=== PATIENT | male | born 1955 | race Caucasian/White ===

== ENCOUNTER 2018-11-08 08:08 | Emergency (ER) | payer OTHER, SELFPAY ==
[2018-11-08 08:10] VITALS: BP 132/78; PULSE 69; RESP 18; TEMP 36.6; O2SAT 96; BMI 31.7
[2018-11-08 08:41] VITALS: BP 121/75; BP 124/84; PULSE 64; PULSE 68
[2018-11-08] MEDS: 0.9% Normal Saline 1,000 ML 1000 ML IV (08:41)
[2018-11-08 08:52] LABS: Absolute Lymphocyte Count 1.82 X10^3/uL (0.83-4.51); Absolute Neutrophil Count 4.5 X10^3/uL (2.0-7.7); Basophil# 0.06 X10^3/uL; Basophil% 0.8 % (0-1); Eosinophil# 0.13 X10^3/uL; Eosinophils% 1.8 % (0-5); Hemoglobin 14.2 g/dL (13.0-16.5); Lymphocyte # 1.82 X10^3/ul (4.0); Lymphocyte % 25.4 % (19-41); Mean Corp Hgb Conc 33.8 g/dL (32-36); Mean Corpuscular Hgb 31.6 pg (27.0-32.0); Mean Corpuscular Volume 93.5 fL (80-94); Monocyte% 8.4 % (0-10); NRBC Flagged by Analyzer 0 % (0-5); Neutrophil # 4.54 X10^3/uL (2.7-7.7); Neutrophil % 63.3 % (47-70); Platelet Count 132 K/mm3 (150-450); RBC Distribution Width CV 13.7 % (11.6-14.6); RBC Distribution Width SD 46.6 fl (35.1-43.9); Red Blood Count 4.49 M/mm3 (4.6-6.2); White Blood Count 7.2 K/mm3 (4.4-11.0)
[2018-11-08 09:01] LABS: International Normalized Ratio 1.2; Prothrombin Time (Protime)PT. 14.8 SECONDS (11.7-14.9)
[2018-11-08 09:02] LABS: Partial Thromboplast Time 31.5 Seconds (24.1-36.2)
[2018-11-08 09:17] LABS: Anion Gap 8 (5-15); BUN 16 mg/dL (7-18); BUN/Creat Ratio 18.1 RATIO (10-20); Chloride 108 mmol/L (98-107); Creatinine, Serum 0.88 mg/dL (0.70-1.30); EST Glomerular Filtration Rate 93 mL/min (>60); Est Glom Filt Rate - Afr Amer 113 mL/min (>60); Estimated Creatinine Clearance 92.17 ml/min; Glucose 96 mg/dL (74-106); Potassium 4.1 mmol/L (3.5-5.1); Sodium Level 143 mmol/L (136-145)
--- NOTE | 2018-11-08 09:45 | ED.VISSUMM ---
- ER Visit Summary Date of Service: 11/08/18 Chief Complaint: Blood in stool History of Present Illness: The patient is a [address] Lyons and Dr. Cuhck Borjas. He reports that he had a loose black stool twice yesterday. He has had bright red blood 3 times today. He denies any abdominal pain. Reports that he has been gassy. He denies any other complaints. No chest pain, shortness of breath, or lightheadedness. He is not on any anticoagulants. Patient had a colonoscopy and endoscopy in June of this year. It sounds as though as he may have had esophageal varices. However, the report is not available to me. He also has a history of colon cancer for which she had a partial colectomy. He reports that he is cancer free as far as he knows. Physical Examination: Vitals: Stable. Afebrile. General: Well-nourished and well-developed. Head: Normocephalic atraumatic. Neck: Supple, no lymphadenopathy. No JVD. Nontender. Cardiovascular: Regular rate and rhythm. No murmurs. Respiratory: No respiratory distress. Clear to auscultation bilaterally. Abdominal: Soft, nontender, nondistended, normal bowel sounds. No guarding, rebound, or peritoneal signs. Rectal: He does have external hemorrhoids that appear inflamed, but there is no active bleeding. Back: Nontender. Extremities: Nontender, no edema. Skin: Normal color, no rash. Neurologic: Alert and oriented ?3. Cranial nerves II through XII are intact. Normal strength and sensation. Psych: Normal affect. Test Results: CBC shows a hemoglobin of 14.2 and platelets of 132. His hemoglobin has been 14.3-14.5 since 2016. The last one was in March 2017. Chem-7 shows a chloride of 108. Of note his BUN is 16. INR is 1.2. PTT is 31.5. Emergency Department Course and Treatment: Patient had negative with static vital signs. He is resting comfortably. Treatment Plan: Patient was discussed with Dr. Molina. He will be discharged with instructions to follow-up with Dr. Conrad within 1 week for another exam. He does understand that if he has worsening bleeding or any other symptoms including lightheadedness, chest pain, shortness of breath he should return the emergency department for further evaluation. Disposition: To home in improved and stable condition. Impression: 1. Stable lower GI bleed. 2. External hemorrhoids. 3. Thrombocytopenia, chronic. This note was generated with [employer] software. It may contain incorrect words, spelling, and punctuation that were not noted in review of the chart prior to signing ED Disposition - Plan for ED Patient: Instructions: RECTAL BLEED, Stable Referrals: Chuck Borjas MD [STAFF PHYSICIAN] - 1 Week
[2018-11-08 10:15] VITALS: BP 123/79; PULSE 68; RESP 16; O2SAT 95
== END 2018-11-08 10:16 | disposition home or self-care (01) ==
PROVIDERS: Emergency Provider Emergency Medicine; Family Provider Family Medicine; PCP Family Medicine
DX: K92.1 Melena (principal); K64.4 Residual hemorrhoidal skin tags; D69.6 Thrombocytopenia, unspecified; Z85.038 Personal history of other malignant neoplasm of large intestine; Z90.49 Acquired absence of other specified parts of digestive tract; I10 Essential (primary) hypertension
CPT/HCPCS: 80048; 85025; 85610; 85730; 96360; 99285; J7030

== ENCOUNTER 2022-05-01 18:38 | Emergency (ER) | payer BC, SELFPAY ==
[2022-05-01 18:39] VITALS: BP 122/75; PULSE 97; RESP 14; TEMP 38.1; O2SAT 94; BMI 73.7
--- NOTE | 2022-05-01 18:55 | EX.ED.DYSGE1 ---
HPI History of Present Illness Chief Complaint: Fever Informant: patient and spouse/S.O. Narrative Narrative: Fever since yesterday Tmax 102 tympanic. No medications taken. Mild cough today. Mild headache. Abdominal cramping with nausea. No vomiting diarrhea. No urinary symptoms. History of cirrhosis from hepatitis C. History of colon cancer remotely with colectomy. No current chemotherapy. History of hypertension on medications. Denies history gastric ulcers or kidney injury. He is vaccinated for COVID along with influenza. No COVID infections in the past. Denies sick contacts. PFSH PFS Home Medications amlodipine 10 mg tablet 10 mg PO DAILY blood pressure 03/26/17 [History Last Taken 03/26/17 10:00] eszopiclone 2 mg tablet (Lunesta) 2 mg PO PRN PRN Sleep 03/26/17 [History Last Taken 03/25/17 22:00] valsartan 80 mg-hydrochlorothiazide 12.5 mg tablet 1 ea PO DAILY blood pressure 03/26/17 [History Last Taken 03/26/17 10:00] nirmatrelvir 300 mg (150 mg x2)-ritonavir 100 mg tablet,dose pack(EUA) (Paxlovid) See Rx Instructions PO .COMPLEX #30 tabs 05/01/22 [Rx Last Taken Unknown] ondansetron 4 mg disintegrating tablet 4 mg PO Q8H PRN PRN Nausea #10 tabs 05/01/22 [Rx Last Taken Unknown] Allergy/AdvReac Type Severity Reaction Status Date / Time lisinopril AdvReac Other Verified 05/01/22 18:41 trazodone AdvReac Other Verified 05/01/22 18:41 zolpidem AdvReac Other Verified 05/01/22 18:41 Social History Smoking Status: Never smoker ROS ROS ED Constitutional Constitutional ED: Reports chills and fever(s); Denies sweats Eyes Eyes: Denies change in vision ENT ENT ED: Denies dysphagia or sore throat Cardiovascular Cardiovascular: Denies chest pain, leg edema, palpitations or racing heartbeat Respiratory/Chest Respiratory/Chest: Reports cough; Denies dyspnea or dyspnea on exertion Gastrointestinal Gastrointestinal: Reports nausea; Denies abdominal pain, diarrhea or vomiting Genitourinary Genitourinary ED: Denies dysuria, hematuria or urinary frequency Musculoskeletal Musculoskeletal: Reports myalgias; Denies back pain, extremity pain or neck pain Integumentary Denies rash or wounds Neurologic Neurologic: Reports headache(s); Denies paresthesias or weakness EXAM Physical Exam Const Vital Signs: 05/01/22 18:39 05/01/22 19:01 Temperature 100.6 F H Temperature Source Temporal Pulse Rate 97 Respiratory Rate 14 Respiratory Effort Normal Non-Labored Respiratory Pattern Normal Blood Pressure 122/75 H Blood Pressure Mean 90 Pulse Ox 94 Oxygen Delivery Method Room Air Positive well nourished and well developed General Appearance ED: well developed and NAD HEENT Reports TM's clear and moist mucous membranes HEENT Narrative: No posterior pharyngeal erythema. TMs normal bilaterally. normocephalic and atraumatic Tympanic Membrane ED: Yes TM's clear Eyes PERRL, EOMs intact bilaterally and conjunctivae normal General Eye ED: Yes normal appearance of both eyes Neck no lymphadenopathy and supple Neck Narrative: Number just missed General: Negative for tenderness Chest Wall Chest: Negative for tenderness Resp normal respiratory effort and normal air movement Effort and Inspection: symmetric chest movement; Negative for respiratory distress Cardio regular rate, regular rhythm and no murmurs Peripheral Pulses: pulses 2+ throughout GI normal to inspection, nondistended, normoactive bowel sounds and non-tender Palpation: Negative for guarding or rebound tenderness present Back/Spine no CVA tenderness and no thoracic nor lumbar tenderness Extremity normal to inspection General Extremety ED: Negative for edema or tenderness General Extremity: Negative for edema Neuro oriented x3, CN's II-XII intact bilaterally and no sensory deficits noted Sensorium / Orientation: awake and alert Skin no rashes or lesions noted and no wounds MDM MDM MDM Narrative Medical decision making narrative: Interventions / MDM: Differential diagnosis: Fever, viral syndrome, COVID infection, influenza, pneumonia Diagnosis considered but do not suspect: N/A My EKG interpretation: N/A Imaging independently reviewed and interpreted by myself: 2 view chest x-ray prior assess. External documents reviewed: N/A Test considered but not ordered:N/A ED course: Patient febrile in the ED treated with Motrin. Improvement of symptoms. Chest x-ray negative. Flu negative however COVID positive. Patient is not hypoxic. Day 2 of symptoms he has comorbidities. Discussed Paxlovid for treatment for which he agreed. Discussed side effects. Prescription for Zofran also written. Return precautions discussed. All questions were answered. Re-evaluation: stable Disposition discussed with patient/family/significant other: Patient and significant other Case discussed with consulting clinician: N/A Radiography Diagnostic Testing: Clinical Impression(s) from Imaging Studies Chest X-Ray 05/01/22 19:05 IMPRESSION: No acute radiographic abnormalities. Electronically Signed: Jose Carlos Hogan MD at 20:21 EST , Discharge Plan Triage Chief Complaint: Fever ED Provider: Gomez Kruse Dx/Rx/DC Orders Clinical Impression: COVID-19 virus infection, Fever Instructions: Coronavirus Disease 2019 (COVID-19): Caring for Yourself or Others, ED Fever Control (Adult) Prescriptions: New Paxlovid (EUA) 300 mg (150 mg x 2)-100 mg tablets,dose pack See Rx Instructions .ROUTE .COMPLEX Qty: 30 0RF Rx Instructions: take TWO 150 mg tablets of nirmatrelvir with ONE 100 mg tablet of ritonavir twice daily for 5 days ondansetron [ondansetron] 4 mg tablet,disintegrating 4 mg PO Q8H PRN PRN (Reason: Nausea) Qty: 10 0RF No Action valsartan-hydrochlorothiazide 1 EACH tablet 1 ea PO DAILY amlodipine 10 MG tablet 10 mg PO DAILY eszopiclone [Lunesta] 2 MG tablet 2 mg PO PRN PRN (Reason: Sleep) Primary Care Provider: Ever Lyons Referrals: Ever Lyons MD [Primary Care Provider] - 1 Week Activity Restrictions/Additional Instructions: COVID-positive. Chest x-ray negative. Use ibuprofen every 6 hours as needed for fever. Take Paxlovid as prescribed. Monitor breathing oxygenation. Return if worsening symptoms. Disposition Disposition: Home, Self Care Discharge Date/Time: 05/01/22 20:53
[2022-05-01] MEDS: Ibuprofen 600 MG Tablet PO (18:59)
--- NOTE | 2022-05-01 19:05 | RAD_ITS ---
INDICATION: cough EXAMINATION/TECHNIQUE: X-RAY - XR Chest 2 Views COMPARISON: 03/26/2017 FINDINGS: The lungs are clear. The cardiomediastinal silhouette is unremarkable. No pleural effusion or pneumothorax. Degenerative changes of the thoracic spine. RAD/Chest PA and Lateral IMPRESSION: No acute radiographic abnormalities. Electronically Signed: Jose Carlos Hogan MD at 20:21 EST ,
== END 2022-05-01 20:53 | disposition home or self-care (01) ==
PROVIDERS: Emergency Provider Emergency Medicine; PCP Family Medicine; Visit Provider Emergency Medicine
DX: U07.1 COVID-19 (principal); R10.9 Unspecified abdominal pain; I10 Essential (primary) hypertension; R51.9 Headache, unspecified
CPT/HCPCS: 71046; 87428; 99283

== ENCOUNTER 2024-07-29 21:11 | Emergency (ER) | payer MEDICARE, SELFPAY ==
[2024-07-29 21:11] VITALS: BP 106/88; PULSE 104; RESP 18; TEMP 37.8; O2SAT 96; BMI 33.4
[2024-07-29 21:14] VITALS: BP 106/88; PULSE 105; RESP 18; TEMP 37.8; O2SAT 98
--- NOTE | 2024-07-29 21:40 | CT_ITS ---
PROCEDURE: ABDOMEN/PELVIS W IV CONT ONLY 07/29/2024 REASON FOR EXAM: LOWER ABD PAIN, DIARRHEA TECHNIQUE: Abdomen and pelvis CT with intravenous contrast. Coronal and Sagittal reconstruction series were provided. PATIENT PREPARATION: Per protocol ORAL CONTRAST TYPE: None. AMOUNT: mL CONTRAST: Isovue 370 VOLUME: 91 mL Not Provided Gauge IV One or more dose reduction techniques were used (e.g., Automated exposure control, adjustment of the mA and/or kV according to patient size, use of iterative reconstruction technique. RADIATION DOSE SUMMARY: CTDlvol: 35 mGy DLP: 12 19 mGycm COMPARISON: None FINDINGS: Lung bases: Mild dependent atelectasis Liver: Marked nodularity of the liver contour, consistent with cirrhosis. No suspicious enhancing lesions are demonstrated. Gallbladder: Mild gallbladder wall thickening. No radiographic evidence of stones. Spleen: Normal size. Pancreas: Normal size without evidence of mass surrounding inflammation or ductal dilation. Adrenals: Unremarkable Kidneys: Small nonobstructing left renal calculus. No evidence of hydronephrosis bilaterally. Bladder: Decompressed urinary bladder. Reproductive Organs: Coarse calcification of the prostate gland. Bowel: Evaluation of the bowel loops are limited due to lack of oral contrast. The stomach is grossly unremarkable. Fluid-filled prominent loops of small bowel within the right lower quadrant region, with subtle adjacent stranding and mesenteric edema. No dilatation is demonstrated. Fluid-filled right colon. No wall thickening. The remaining large bowel appears grossly unremarkable. Appendix: Surgically absent Lymph nodes: No lymphadenopathy Vasculature: Trace atherosclerotic calcification of the abdominal aorta and branches. Peritoneum / Retroperitoneum: Unremarkable Bones: Degenerative changes of the spine. CT/Abdomen/Pelvis W IV Cont ONLY IMPRESSION: Fluid-filled prominent loops of small bowel within the right lower quadrant wit h subtle adjacent stranding and mesenteric edema, this is concerning for enteritis. Underlying obstruction can not be completely excluded. Small-bowel follow-through may be helpful for further characterization. Fluid-filled right colon, no wall thickening or adjacent stranding, may represe nt focal area of colitis. Gallbladder wall thickening, no radiographic evidence of stones. Right upper q uadrant ultrasound may be helpful for further characterization. Small nonobstructing left renal calculus. Cirrhotic liver. Reading Location: [facility]
[2024-07-29 21:58] LABS: Mucous, Urine 0 SEEN /hpf (<or=2+); Red Blood Cells-Urine 0 SEEN /hpf (0-5)
[2024-07-29 21:58] LABS: Absolute Lymphocyte Count 0.55 X10^3/uL (0.83-4.51); Basophil# 0.02 X10^3/uL; Basophil% 0.3 % (0-1); Eosinophil# 0.02 X10^3/uL; Eosinophils% 0.3 % (0-5); Hematocrit 38.2 % (40-54); Hemoglobin 13.4 g/dL (13.0-16.5); Lymphocyte # 0.55 X10^3/ul (0.83-4.51); Lymphocyte % 7.6 % (19-41); Mean Corp Hgb Conc 35.1 g/dL (32-36); Mean Corpuscular Hgb 32.9 pg (27.0-32.0); Mean Corpuscular Volume 93.9 fL (80-94); Monocyte# 0.67 X10^3/uL; Monocyte% 9.2 % (0-10); NRBC Flagged by Analyzer 0 % (0-5); Neutrophil # 5.96 X10^3/uL (2.7-7.7); Neutrophil % 82.2 % (47-70); POSITIVE DIFFERENTIAL YES; Platelet Count 111 K/mm3 (150-450); RBC Distribution Width CV 13.7 % (11.6-14.6); RBC Distribution Width SD 47.3 fl (35.1-43.9); Red Blood Count 4.07 M/mm3 (4.6-6.2); White Blood Count 7.3 K/mm3 (4.4-11.0)
[2024-07-29 21:59] LABS: Color, Urine Yellow (Yellow); Glucose, Dipstick Normal (Normal); Ketone-Dipstick Negative (Negative); Leukocyte Esterase-Dipstick Negative /ul (Negative); Nitrite-Dipstick Negative (Negative); Occult Blood-Urine Negative /ul (Negative); Protein-Dipstick 30 mg/dl (Negative); Urine Bilirubin Dipstick Negative (Negative); Urine Clarity Clear (Clear); Urine Urobilinogen Normal (Normal)
[2024-07-29] MEDS: 0.9% Normal Saline (1000mL) 1,000 ML 999 ML IV (21:59)
[2024-07-29] MEDS: Ondansetron 4 MG/2 ML Vial IV (21:59)
[2024-07-29 22:14] VITALS: BP 134/76; PULSE 64; RESP 18; TEMP 36.7; O2SAT 100
[2024-07-29 22:17] LABS: Bacteria 2+ /hpf (None Seen); Squamous Epithelial Cells - UA 0-5 SEEN /hpf (0-5); White Blood Cells 0-5 SEEN /hpf (0-5)
[2024-07-29 22:37] LABS: Anion Gap 13 (5-15); BUN 20 mg/dL (4-19); Carbon Dioxide 19.7 mmol/L (21.0-32.0); Chloride 106 mmol/L (98-108); EST Glomerular Filtration Rate 94 (>60); Estimated Creatinine Clearance 92.45 ml/min (50-250); Glucose 139 mg/dL (70-99); Potassium 3.5 mmol/L (3.3-5.1); Sodium Level 138 mmol/L (133-145)
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
[2024-07-29] MEDS: Ceftriaxone 1 GM/50 ML BAG IV (23:25)
[2024-07-30] MEDS: metroNIDAZOLE 500 MG/100 ML BAG 100 MG IV (00:18)
[2024-07-30 01:00] VITALS: PULSE 69; RESP 18; O2SAT 98
[2024-07-30 01:44] VITALS: BP 138/74; PULSE 69; RESP 18; TEMP 36.9; O2SAT 98
== END 2024-07-30 01:45 | disposition home or self-care (01) ==
PROVIDERS: Emergency Provider Emergency Medicine; PCP Family Medicine; Visit Provider Emergency Medicine
DX: K52.9 Noninfective gastroenteritis and colitis, unspecified (principal); K74.60 Unspecified cirrhosis of liver; Z92.21 Personal history of antineoplastic chemotherapy; Z85.038 Personal history of other malignant neoplasm of large intestine; Z86.19 Personal history of other infectious and parasitic diseases; Z90.79 Acquired absence of other genital organ(s); N20.0 Calculus of kidney; R10.9 Unspecified abdominal pain
CPT/HCPCS: 74177; 80048; 81001; 85025; 87086; 87088; 87493; 87506; 99282; Q9967; A4216; J2405

== ENCOUNTER 2024-08-15 16:22 | Emergency (ER) | payer MEDICARE, SELFPAY ==
[2024-08-15 16:22] VITALS: BP 115/73; PULSE 80; RESP 16; TEMP 36.8; O2SAT 98; BMI 32.5
[2024-08-15] MEDS: 0.9% Normal Saline (1000mL) 1,000 ML 999 ML IV (16:41)
[2024-08-15 16:57] LABS: Color, Urine Yellow (Yellow); Glucose, Dipstick Normal (Normal); Ketone-Dipstick Negative (Negative); Leukocyte Esterase-Dipstick 25 /ul (Negative); Nitrite-Dipstick Negative (Negative); Occult Blood-Urine Negative /ul (Negative); Protein-Dipstick 30 mg/dl (Negative); Urine Bilirubin Dipstick Negative (Negative); Urine Clarity Sl. Cloudy (Clear); Urine Urobilinogen 1 mg/dl (Normal)
--- NOTE | 2024-08-15 17:00 | CT_ITS ---
PROCEDURE: ABDOMEN/PELVIS W IV CONT ONLY 08/15/2024 REASON FOR EXAM: RIGHT-SIDED ABDOMINAL PAIN TECHNIQUE: Abdomen and pelvis CT with intravenous contrast. Coronal and Sagittal reconstruction series were provided. PATIENT PREPARATION: Per protocol ORAL CONTRAST TYPE: None. CONTRAST: Isovue 370 VOLUME: 100 mL One or more dose reduction techniques were used (e.g., Automated exposure control, adjustment of the mA and/or kV according to patient size, use of iterative reconstruction technique. RADIATION DOSE SUMMARY: CTDlvol: 40 mGy DLP: 1200 mGycm COMPARISON: CT abdomen pelvis 07/29/2024. FINDINGS: Lung bases: Bibasilar atelectasis. The heart is normal in size. Liver: Persistent nodular liver contour, compatible with cirrhosis. There are a few ill-defined hypodensities, too small to characterize. The major portal veins are patent. No biliary ductal dilation. Gallbladder: No radiopaque stones within the gallbladder. Spleen: Moderate splenomegaly. Pancreas: Unremarkable. Adrenals: No adrenal mass. Kidneys: Bilateral renal hypodensities, too small to characterize. Bilateral nonobstructing renal calculi. No hydronephrosis. Bladder: Mildly distended and unremarkable. Reproductive Organs: Dystrophic calcifications within the prostate gland. Bowel: Suture material within the distal colon, compatible with prior resection. The bowel loops are nondilated. No ascites or pneumoperitoneum. Surgical clips in the expected region of the appendix., compatible with prior appendectomy. 2 focal areas of soft tissue nodularity within the right retroperitoneum, present on prior examination (series 2, images 51 and 64). Lymph nodes: Periportal lymph nodes, likely reactive. Vasculature: Moderate plaque of the aortoiliac vessels. Bones: Thoracolumbar spondylosis. CT/Abdomen/Pelvis W IV Cont ONLY IMPRESSION: 1. No acute abdominopelvic finding. 2. Findings of cirrhosis with portal hypertension including moderate splenomega ly. Ill-defined hepatic hypodensities, likely benign, however given degree of liver cirrhosis, nonemergent abdominal MRI or a bdominal CT (liver protocol) should be obtained if not recently performed for further evaluation. 3. Soft tissue nodularity within the right retroperitoneum, of indeterminate si gnificance. These could also be evaluated on abdominal MRI or CT. Reading Location: [id number]
[2024-08-15 17:02] LABS: Absolute Lymphocyte Count 1.25 X10^3/uL (0.83-4.51); Absolute Neutrophil Count 6.6 X10^3/uL (2.0-7.7); Basophil# 0.05 X10^3/uL; Basophil% 0.6 % (0-1); Eosinophil# 0.09 X10^3/uL; Hematocrit 39.8 % (40-54); Hemoglobin 13.9 g/dL (13.0-16.5); Lymphocyte # 1.25 X10^3/ul (0.83-4.51); Mean Corp Hgb Conc 34.9 g/dL (32-36); Mean Corpuscular Hgb 32.9 pg (27.0-32.0); Mean Corpuscular Volume 94.3 fL (80-94); Mean Platelet Vol. 13.3 fl (6.2-12.0); Monocyte# 0.92 X10^3/uL; Monocyte% 10.3 % (0-10); NRBC Flagged by Analyzer 0 % (0-5); Neutrophil % 73.9 % (47-70); Platelet Count 147 K/mm3 (150-450); RBC Distribution Width CV 13.8 % (11.6-14.6); RBC Distribution Width SD 48.1 fl (35.1-43.9); Red Blood Count 4.22 M/mm3 (4.6-6.2); White Blood Count 8.9 K/mm3 (4.4-11.0)
--- NOTE | 2024-08-15 17:14 | EX.ED.DYSGE1 ---
HPI History of Present Illness Chief Complaint: Abd Pain Narrative Narrative: Chief complaint and HPI: Right lower quadrant abdominal pain and diarrhea. 68-year-old male with past medical history of colon cancer with right hemicolectomy and appendectomy previous chemo presents for evaluation of right lower abdominal pain and watery diarrhea. History taken by patient as well as medical record. On chart review, patient was seen for same complaint on 07/29. At that time he had a abdominal pain workup. CT scanning showed right-sided colitis with small bowel enteritis. When reviewing the microbiology he had a C. difficile and enteropathic panel that was negative. He was discharged home on cefdinir, Flagyl, and Zofran with follow-up with Dr. Cowan. Patient states that his pain has continued despite the antibiotics. It waxes and wanes in intensity. He states that his diarrhea decreased while on antibiotics but today has significantly increased. Denies any blood in his diarrhea. Has yet to follow-up with Dr. Cowan. States his last colonoscopy was about 1 to 2 months ago in which it was unremarkable. States that he was told he did not need another one until 10 years. He denies any fever, chills, shortness of breath, chest pain, vomiting, hematuria, dysuria. Has a history of kidney stones. Denies any back pain. Review of systems: See HPI Medications: As listed on the chart Allergies: As listed on the chart PFSH: Per chart Vital signs: As listed on the chart. Reviewed. Physical exam: Gen: A&O x3, NAD Head: Normocephalic, atraumatic Eyes: No sclera icterus, conjunctiva clear ENT: Moist mucous membranes Neck: Trachea midline, No JVD CV: RRR, no murmurs, no peripheral edema Resp: Lungs CTA BL, no w/r/c GI: Abd soft, non-distended, mild tenderness to palpation in the mid right abdomen, no rebound or rigidity : No CVA tenderness, urine is dark in cup Musc: Full ROM, no deformity Skin: Warm, dry Neuro: Alert, oriented, grossly intact, sensation intact Psych: Cooperative, appropriate mood and affect [facility] Medical History Colon cancer Physical exam, pre-employment Home Medications ?Medication ?Instructions ?Recorded ?Last Taken ?Type amlodipine 10 mg tablet 10 mg PO DAILY blood pressure 03/26/17 03/26/17 10:00 History eszopiclone 2 mg tablet (Lunesta) 2 mg PO PRN PRN Sleep 03/26/17 03/25/17 22:00 History carvedilol 12.5 mg tablet 12.5 mg PO BID 07/29/24 Unknown History cefdinir 300 mg capsule 300 mg PO Q12H #14 caps 07/29/24 Unknown Rx hydrochlorothiazide 12.5 mg tablet 12.5 mg PO DAILY 07/29/24 Unknown History lactulose 10 gram/15 mL oral 15 ml PO DAILY 07/29/24 Unknown History solution (Constulose) losartan 50 mg tablet 50 mg PO DAILY 07/29/24 Unknown History metronidazole 500 mg tablet 500 mg PO Q8H 7 days #21 tabs 07/29/24 Unknown Rx ondansetron 4 mg disintegrating 4 mg PO Q8H PRN PRN Nausea #10 tabs 07/29/24 Unknown Rx tablet Allergy/AdvReac Type Severity Reaction Status Date / Time lisinopril AdvReac Other Verified 08/15/24 16:25 trazodone AdvReac Other Verified 08/15/24 16:25 zolpidem AdvReac Other Verified 08/15/24 16:25 Surgical History History of partial surgical removal of colon Hx of appendectomy Social History Smoking Status: Never smoker EXAM Physical Exam Const Vital Signs: 08/15/24 16:22 08/15/24 18:22 Temperature 98.3 F Temperature Source Oral Pulse Rate 80 74 Respiratory Rate 16 18 Blood Pressure 115/73 119/74 Blood Pressure Mean 87 89 Pulse Ox 98 98 Oxygen Delivery Method Room Air Room Air MDM MDM MDM Narrative Medical decision making narrative: 68-year-old male with past medical history of colon cancer with right hemicolectomy and appendectomy previous chemo presents for evaluation of right lower abdominal pain and watery diarrhea. History taken by patient as well as medical record. Was seen last month for same complaint. CT scanning showed right-sided colitis with small bowel enteritis and was treated with cefdinir and Flagyl. On microbiology, his C. difficile and enteropathic panel was negative. Has yet to follow-up with Dr. Cagle. Pain has never resolved. Describes it as waxing and waning. Diarrhea improved however worsened today. Differential diagnosis includes but is not limited to colitis, C. difficile, electrolyte abnormality, UTI, urolithiasis, biliary colic. NS bolus, morphine, Zofran ordered for pain. Abdominal pain workup ordered. CBC without leukocytosis or anemia. Patient has baseline thrombocytopenia. CMP without significant electrolyte abnormality or SUSAN. Patient has transaminitis with an AST of 65 and ALT of 58. On chart review he has a history of transaminitis with liver cirrhosis. His total bilirubin is 1.72. He has had this elevated in the past. Lipase unremarkable. CT abdomen pelvis shows findings of known cirrhosis with portal hypertension including moderate splenomegaly. Ill-defined hepatic hypodensities likely benign however given degree of liver cirrhosis nonemergent abdominal MRI or abdominal CT liver protocol should be obtained. Soft tissue nodularity within the right retroperitoneum, of indeterminate significance. UA negative for UTI negative for UTI but positive for urobilinogen. Although patient is not having any right upper quadrant abdominal pain given that his pain is right-sided with these findings on CT scan and labs will get ultrasound of the gallbladder to better assess a biliary pathology. UA is negative for UTI. Ultrasound of the gallbladder shows liver cirrhosis with tiny gallbladder polyp but no other acute findings. Per radiology polyp does not meet criteria for dedicated follow-up. At this point in time, no clear etiology for patient's symptoms although may be secondary to his cirrhosis. He was unable to have diarrhea here in the emergency department therefore C. difficile was unable to be obtained. I recommended following up with primary care physician as well as his GI physician that he sees. Return precautions explained. He confirmed understand the plan. Patient stable to discharge home. Impression: 1. Right lower quadrant abdominal pain 2. Diarrhea 3. History of cirrhosis with chronic transaminitis and hyperbilirubinemia Lab Data Labs: Laboratory Results - last 24 hr 08/15/24 16:41 WBC 8.9 RBC 4.22 L Hgb 13.9 Hct 39.8 L MCV 94.3 H MCH 32.9 H MCHC 34.9 RDW Std Deviation 48.1 H RDW Coeff of Lala 13.8 Plt Count 147 L MPV 13.3 H Immature Gran % (Auto) 0.200 Neut % (Auto) 73.9 H Lymph % (Auto) 14.0 L Crosby % (Auto) 10.3 H Eos % (Auto) 1.0 Baso % (Auto) 0.6 Absolute Neuts (auto) 6.6 Absolute Lymphs (auto) 1.25 Nucleated RBC % 0 Sodium 139 Potassium 4.1 Chloride 105 Carbon Dioxide 22.9 Anion Gap 11 BUN 18 Creatinine 0.92 Estim Creat Clear Calc 89.24 Est GFR (MDRD) Non-Af 92 BUN/Creatinine Ratio 19.8 Glucose 90 Calcium 9.4 Total Bilirubin 1.72 H AST 65 H ALT 58 H Alkaline Phosphatase 166 H Total Protein 7.9 Albumin 3.9 Globulin 3.9 Albumin/Globulin Ratio 1.0 Lipase 53 Urine Color Yellow Urine Clarity Sl. Cloudy Urine pH 6.0 Ur Specific [place] 1.020 Urine Protein 30 H Urine Glucose (UA) Normal Urine Ketones Negative Urine Occult Blood Negative Urine Nitrite Negative Urine Bilirubin Negative Urine Urobilinogen 1 H Ur Leukocyte Esterase 25 H Urine RBC 0-5 SEEN Urine WBC 0-5 SEEN Ur Squamous Epith Cells 0-5 SEEN Urine Bacteria RARE Hyaline Casts 0-5 SEEN Urine Mucus 2+ Radiography Diagnostic Testing: Clinical Impression(s) from Imaging Studies Abdomen/Pelvis CT 08/15/24 17:00 IMPRESSION: 1. No acute abdominopelvic finding. 2. Findings of cirrhosis with portal hypertension including moderate splenomegaly. Ill-defined hepatic hypodensities, likely benign, however given degree of liver cirrhosis, nonemergent abdominal MRI or abdominal CT (liver protocol) should be obtained if not recently performed for further evaluation. 3. Soft tissue nodularity within the right retroperitoneum, of indeterminate significance. These could also be evaluated on abdominal MRI or CT. Reading Location: [facility] Gallbladder Ultrasound 08/15/24 17:58 IMPRESSION: Liver cirrhosis. No acute finding. Reading Location: [facility] Discharge Plan Triage Chief Complaint: Abd Pain ED Provider: Cayetano Mcnally Dx/Rx/DC Orders Clinical Impression: Abdominal pain Instructions: ED Abdominal Pain Unkn Cause Male... Prescriptions: No Action amlodipine 10 MG tablet 10 mg PO DAILY eszopiclone [Lunesta] 2 MG tablet 2 mg PO PRN PRN (Reason: Sleep) losartan 50 mg tablet 50 mg PO DAILY carvedilol 12.5 mg tablet 12.5 mg PO BID lactulose [Constulose] 10 gram/15 mL solution 15 ml PO DAILY hydrochlorothiazide 12.5 mg tablet 12.5 mg PO DAILY metronidazole 500 mg tablet 500 mg PO Q8H 7 Days Qty: 21 0RF ondansetron 4 mg tablet,disintegrating 4 mg PO Q8H PRN PRN (Reason: Nausea) Qty: 10 0RF cefdinir 300 mg capsule 300 mg PO Q12H Qty: 14 0RF Primary Care Provider: Ever Lyons Referrals: Follow-up with your primary care physician [Other] - 3-5 Days Ever Lyons MD [Primary Care Provider] - 3-5 Days Activity Restrictions/Additional Instructions: At this time, no clear reason for your right lower quadrant abdominal pain and diarrhea. You need to follow-up with your GI physician and PCP. Return back to the ED if symptoms change or worsen. Your bilirubin was elevated here at 1.72 as well as your liver enzymes. They have been elevated in the past however please let your GI physician know this. Print Language: Mongolian Disposition Disposition: Home, Self Care
[2024-08-15] MEDS: Morphine 4 MG/ML Syringe IV (17:21)
[2024-08-15] MEDS: Ondansetron 4 MG/2 ML Vial IV (17:21)
[2024-08-15 17:38] LABS: AST(SGOT) 65 U/L (<=37); Alanine Aminotransfer ALT/SGPT 58 U/L (<=46); Albumin, Serum 3.9 g/dL (3.4-4.8); Alkaline Phosphatase 166 U/L (40-129); Anion Gap 11 (5-15); BUN 18 mg/dL (4-19); BUN/Creat Ratio 19.8 RATIO (10-20); Calcium,Total 9.4 mg/dL (7.6-11.0); Carbon Dioxide 22.9 mmol/L (21.0-32.0); Chloride 105 mmol/L (98-108); Creatinine, Serum 0.92 mg/dL (0.70-1.20); EST Glomerular Filtration Rate 92 (>60); Estimated Creatinine Clearance 89.24 ml/min (50-250); Globulin 3.9 g/dL (2.2-4.2); Glucose 90 mg/dL (70-99); Lipase 53 U/L (13-75); Potassium 4.1 mmol/L (3.3-5.1); Protein, Total 7.9 g/dL (5.9-8.4); Sodium Level 139 mmol/L (133-145); Total Bilirubin 1.72 mg/dL (0.00-1.30)
--- NOTE | 2024-08-15 17:58 | US_ITS ---
PROCEDURE: GALLBLADDER 08/15/2024 REASON FOR EXAM: PAIN COMPARISON: Same day CT abdomen pelvis. FINDINGS: Liver: Coarsened hepatic echotexture with a nodular liver contour, compatible with cirrhosis. The bile ducts are nondilated. The major portal vein is patent with normal directional flow at midline. Gallbladder: No stones, sludge, wall thickening or tenderness. Tiny gallbladder polyp, which does not meet criteria for dedicated follow-up. Common bile duct: Normal measuring 0.6 cm. Pancreas: Visualized portions are sonographically unremarkable. Other: Visualized portions of the right kidney are unremarkable. Tiny nonobstructing right renal calculi, better evaluated on same-day CT. No right upper quadrant ascites. US/Gallbladder IMPRESSION: Liver cirrhosis. No acute finding. Reading Location: [id number]
[2024-08-15 18:22] VITALS: BP 119/74; PULSE 74; RESP 18; O2SAT 98
[2024-08-15 19:16] LABS: White Blood Cells 0-5 SEEN /hpf (0-5)
[2024-08-15 19:17] LABS: Hyaline Cast 0-5 SEEN /lpf (0-5); Red Blood Cells-Urine 0-5 SEEN /hpf (0-5)
[2024-08-15 19:18] LABS: Mucous, Urine 2+ /hpf (<or=2+); Squamous Epithelial Cells - UA 0-5 SEEN /hpf (0-5)
[2024-08-15 19:19] LABS: Bacteria RARE /hpf (None Seen)
[2024-08-15 19:38] VITALS: BP 118/62; PULSE 70; RESP 18; TEMP 36.7; O2SAT 99
== END 2024-08-15 19:39 | disposition home or self-care (01) ==
PROVIDERS: Emergency Provider Surgery; PCP Family Medicine; Referring Provider Surgery; Visit Provider Surgery
DX: R10.31 Right lower quadrant pain (principal); K74.69 Other cirrhosis of liver; K82.4 Cholesterolosis of gallbladder; Z85.038 Personal history of other malignant neoplasm of large intestine
CPT/HCPCS: 74177; 76705; 80053; 81001; 83690; 85025; 96361; 96374; 96375; 99283; Q9967; A4216; J2405